=== PATIENT | female | born 1990 | race Caucasian/White ===

== ENCOUNTER 2023-07-10 10:17 | Observation (INO) | payer OTHER ==
--- NOTE | 2023-07-10 10:32 | ED ---
Abdominal Pain HPI - General Chief Complaint: Urogenital Stated Complaint: ABD pain Time Seen by Provider: 07/10/23 10:19 Source: patient, family, EMS, RN notes reviewed Mode of arrival: EMS Limitations: no limitations - History of Present Illness Initial Comments: This is a 33 year old female who presents to the emergency department for abdominal/pelvic pain. Reports sudden onset right lower quadrant abdominal/pelvic pain that was followed by dry heaving and sweating. This occurred about 20 minutes after intercourse, however she is unsure if this is related, as she has never experienced anything like this before. Her called EMS when symptoms persisted. EMS gave her Ketamine for the pain, which she found helpful, however she is still fairly uncomfortable. Denies any urinary symptoms or radiation of pain into the back. Denies any vaginal bleeding or discharge. - Related Data Home Medications Medication Instructions Recorded Confirmed No Known Home Medications 07/10/23 07/10/23 Allergies Allergy/AdvReac Type Severity Reaction Status Date / Time No Known Allergies Allergy Verified 07/10/23 13:38 Review of Systems ROS Statement: Those systems with pertinent positive or pertinent negative responses have been documented in the HPI. ROS Other: All systems not noted in ROS Statement are negative. Past Medical History Past Medical History: Cancer, Hypertension Additional Past Medical History / Comment(s): hypoglycemic, small cell lung cancer History of Any Multi-Drug Resistant Organisms: None Reported Additional Past Surgical History / Comment(s): oral surgery Past Psychological History: No Psychological Hx Reported Smoking Status: Current every day smoker Past Alcohol Use History: Rare Past Drug Use History: Marijuana General Exam Limitations: no limitations General appearance: alert, in distress Head exam: Present: atraumatic, normocephalic, normal inspection Respiratory exam: Present: normal lung sounds bilaterally. Absent: respiratory distress, wheezes, rales, rhonchi, stridor Cardiovascular Exam: Present: regular rate, normal rhythm, normal heart sounds. Absent: systolic murmur, diastolic murmur, rubs, gallop, clicks GI/Abdominal exam: Present: soft, tenderness (RLQ), normal bowel sounds. Absent: distended Neurological exam: Present: alert, oriented X3, CN II-XII intact Psychiatric exam: Present: normal affect, normal mood Skin exam: Present: warm, dry, intact, normal color. Absent: rash Course Vital Signs 0207/10/23 07/10/23 10:21 12:37 13:43 Temperature 97.1 F L Pulse Rate 71 85 64 Respiratory 16 18 18 Rate Blood Pressure 112/78 97/64 99/63 O2 Sat by Pulse 100 99 100 Oximetry Medical Decision Making - Medical Decision Making This is a 33 year old female who presents to the emergency department for abdominal pain. Was pt. sent in by a medical professional or institution? @ -No Did you speak to anyone other than the patient for history? @ -No Did you review nursing and triage notes? @ -Yes, and I agree, it is accurate with regards to the patient's symptoms. Were old charts reviewed? @ -No Differential Diagnosis? @ -Differential Abdominal Pain Women: Appendicitis, Cholecystitis, diverticulosis, ischemic bowel, pancreatitis, hepatitis, UTI, gastroenteritis, AAA, incarcerated hernia, bowel obstruction, constipation, inflammatory bowel, hepatitis, peptic ulcer disease, splenic infarction, perforated viscus, vulvitis, ovarian torsion, PID, kidney stone, placenta abruption, this is not meant to be an all-inclusive list EKG interpreted by me (3pts min.)? @ -Not obtained X-rays interpreted by me (1pt min.)? @ -Not obtained CT interpreted by me (1pt min.)? @ -CT scan of the abdomen and pelvis obtained. My interpretation identifies ascites in the pelvis. U/S interpreted by me (1pt. min.)? @ -Transvaginal US obtained. My interpretation identifies a cystic structure near the right ovary. What testing was considered but not performed? (CT, X-rays, U/S, labs)? Why? @ -None What meds were considered but not given? Why? @ -None Did you discuss the management of the patient with other professionals? @ -Yes, Dr. Meyers, who accepts the patient for admission. Did you reconcile home meds? @ -No Was smoking cessation discussed for >3mins.? @ -No Was critical care preformed (if so, how long)? @ -No Were there social determinants of health that impacted care today? How? (Homelessness, low income, unemployed, alcoholism, drug addiction, transportat ion, low edu. Level, literacy, decrease access to med. care, assisted, rehab)? @ -No Was there de-escalation of care discussed even if they declined? (Discuss DNR or withdrawal of care, Hospice)? @ -No What co-morbidities impacted this encounter? (DM, HTN, Smoking, COPD, CAD, Cancer, CVA, Hep., AIDS, mental health diagnosis, sleep apnea, morbid obesity)? @ -None Was patient admitted / discharged? @ -Admitted. Lab work obtained and found to be unremarkable. test negative. Urinalysis negative for signs of infection. We initially obtained a transvaginal US. This demonstrated a cystic structure near the right ovary thought to be an ovarian cyst. However they did not identify any acute process. There was concern given the patient's level of discomfort and sudden onset of her symptoms. Because of this we proceeded with a CT scan of the abdomen and pelvis. This demonstrated moderate to large pelvic ascites and scattered mild abdominal ascites. This also reidentified the thick-walled cystic structure in the right adnexa and also identified possible high density material/hemorrhagic debris versus collapsed bowel loops in the cul-de-sac. This most likely represents a ruptured cyst. However, there was concern based on the progression of imaging, and that there was no fluid identified on the ultrasound and the CT scan, obtained about an hour later, identified a large amount of fluid. Case discussed with Dr. Meyers, CHARGE MACHINE OPERATOR, who will admit the patient for observation. Will keep the patient NPO in the event any surgical intervention is needed. Undiagnosed new problem with uncertain prognosis? @ -None Drug Therapy requiring intensive monitoring for toxicity (Heparin, Nitro, Insulin, Cardizem)? @ -None Were any procedures done? @ -None Diagnosis/symptom? @ -Pelvic ascites, rupture of cyst of right ovary Acute, or Chronic, or Acute on Chronic? @ -Acute Uncomplicated (without systemic symptoms) or Complicated (systemic symptoms)? @ -Complicated Side effects of treatment? @ -None Exacerbation, Progression, or Severe Exacerbation] @ -Not applicable Poses a threat to life or bodily function? @ -Yes This case was discussed in detail with the attending ED physician, Dr. Tomas. Presentation, findings, and treatment plan discussed in detail as well. - Lab Data Result diagrams: 07/10/23 10:30 07/10/23 10:30 Lab Results 07/10/23 07/10/23 07/10/23 Range/Units 10:30 10:30 10:30 WBC 5.5 (3.8-10.6) k/uL RBC 4.06 (3.80-5.40) m/uL Hgb 13.4 (11.4-16.0) gm/dL Hct 38.5 (34.0-46.0) % MCV 94.8 (80.0-100.0) fL MCH 33.0 (25.0-35.0) pg MCHC 34.8 (31.0-37.0) g/dL RDW 12.2 (11.5-15.5) % Plt Count 109 L (150-450) k/uL MPV 8.8 Neutrophils % 68 % Lymphocytes % 22 % Monocytes % 5 % Eosinophils % 4 % Basophils % 0 % Neutrophils # 3.8 (1.3-7.7) k/uL Lymphocytes # 1.2 (1.0-4.8) k/uL Monocytes # 0.3 (0-1.0) k/uL Eosinophils # 0.2 (0-0.7) k/uL Basophils # 0.0 (0-0.2) k/uL Sodium 137 (137-145) mmol/L Potassium 3.8 (3.5-5.1) mmol/L Chloride 110 H (98-107) mmol/L Carbon Dioxide 19 L (22-30) mmol/L Anion Gap 8 mmol/L BUN 14 (7-17) mg/dL Creatinine 0.44 L (0.52-1.04) mg/dL Est GFR (CKD-EPI)AfAm >90 (>60 ml/min/1.73 sqM) Est GFR (CKD-EPI)NonAf >90 (>60 ml/min/1.73 sqM) Glucose 94 (74-99) mg/dL Plasma Lactic Acid Sampson (0.7-2.0) mmol/L Calcium 9.1 (8.4-10.2) mg/dL Total Bilirubin 0.5 (0.2-1.3) mg/dL AST 23 (14-36) U/L ALT 14 (4-34) U/L Alkaline Phosphatase 60 (38-126) U/L Total Protein 6.3 (6.3-8.2) g/dL Albumin 4.1 (3.5-5.0) g/dL Amylase 96 (30-110) U/L Lipase 48 (23-300) U/L HCG, Qual Not Detected Urine Color Colorless Urine Appearance Clear (Clear) Urine pH 7.0 (5.0-8.0) Ur Specific [place] 1.012 (1.001-1.035) Urine Protein Negative (Negative) Urine Glucose (UA) Negative (Negative) Urine Ketones Negative (Negative) Urine Blood Negative (Negative) Urine Nitrite Negative (Negative) Urine Bilirubin Negative (Negative) Urine Urobilinogen <2.0 (<2.0) mg/dL Ur Leukocyte Esterase Negative (Negative) 07/10/23 Range/Units 10:30 WBC (3.8-10.6) k/uL RBC (3.80-5.40) m/uL Hgb (11.4-16.0) gm/dL Hct (34.0-46.0) % MCV (80.0-100.0) fL MCH (25.0-35.0) pg MCHC (31.0-37.0) g/dL RDW (11.5-15.5) % Plt Count (150-450) k/uL MPV Neutrophils % % Lymphocytes % % Monocytes % % Eosinophils % % Basophils % % Neutrophils # (1.3-7.7) k/uL Lymphocytes # (1.0-4.8) k/uL Monocytes # (0-1.0) k/uL Eosinophils # (0-0.7) k/uL Basophils # (0-0.2) k/uL Sodium (137-145) mmol/L Potassium (3.5-5.1) mmol/L Chloride (98-107) mmol/L Carbon Dioxide (22-30) mmol/L Anion Gap mmol/L BUN (7-17) mg/dL Creatinine (0.52-1.04) mg/dL Est GFR (CKD-EPI)AfAm (>60 ml/min/1.73 sqM) Est GFR (CKD-EPI)NonAf (>60 ml/min/1.73 sqM) Glucose (74-99) mg/dL Plasma Lactic Acid Sampson 2.0 (0.7-2.0) mmol/L Calcium (8.4-10.2) mg/dL Total Bilirubin (0.2-1.3) mg/dL AST (14-36) U/L ALT (4-34) U/L Alkaline Phosphatase (38-126) U/L Total Protein (6.3-8.2) g/dL Albumin (3.5-5.0) g/dL Amylase (30-110) U/L Lipase (23-300) U/L HCG, Qual Urine Color Urine Appearance (Clear) Urine pH (5.0-8.0) Ur Specific [place] (1.001-1.035) Urine Protein (Negative) Urine Glucose (UA) (Negative) Urine Ketones (Negative) Urine Blood (Negative) Urine Nitrite (Negative) Urine Bilirubin (Negative) Urine Urobilinogen (<2.0) mg/dL Ur Leukocyte Esterase (Negative) - Radiology Data Radiology results: report reviewed, image reviewed Disposition Clinical Impression: Pelvic ascites, Rupture of cyst of right ovary Disposition: ADMITTED IP TO THIS HOSP
[2023-07-10] MEDS: SODIUM CHLORIDE 0.9% 1,000 ML IV STA (10:39)
[2023-07-10] MEDS: KETOROLAC 15 MG/ML 1 ML VIAL IVP STA (10:40)
[2023-07-10] MEDS: ONDANSETRON 4 MG/2 ML VIAL IVP STA (10:42)
[2023-07-10 10:48] LABS: Basophils % (A) 0 %; Eosinophils # (A) 0.2 k/uL (0-0.7); Eosinophils % (A) 4 %; HCT 38.5 % (34.0-46.0); HGB 13.4 gm/dL (11.4-16.0); Lymphocytes # (A) 1.2 k/uL (1.0-4.8); Lymphocytes % (A) 22 %; MCHC 34.8 g/dL (31.0-37.0); MCV 94.8 fL (80.0-100.0); Mean Platelet Volume 8.8; Monocytes # (A) 0.3 k/uL (0-1.0); Monocytes % (A) 5 %; Neutrophils # (A) 3.8 k/uL (1.3-7.7); Neutrophils % (A) 68 %; Platelet Count 109 k/uL (150-450); RBC 4.06 m/uL (3.80-5.40); RDW 12.2 % (11.5-15.5); WBC 5.5 k/uL (3.8-10.6)
[2023-07-10 11:02] LABS: HCG,Qualitative Serum Not Detected
[2023-07-10 11:04] LABS: ALT 14 U/L (4-34); AST 23 U/L (14-36); African American GFR (CKD) >90 (>60 ml/min/1.73 sqM); Albumin 4.1 g/dL (3.5-5.0); Alkaline Phosphatase 60 U/L (38-126); Amylase 96 U/L (30-110); Anion Gap 8 mmol/L; Blood Urea Nitrogen 14 mg/dL (7-17); Calcium 9.1 mg/dL (8.4-10.2); Carbon Dioxide 19 mmol/L (22-30); Chloride 110 mmol/L (98-107); Glucose 94 mg/dL (74-99); Lipase 48 U/L (23-300); Non-African American GFR(CKD) >90 (>60 ml/min/1.73 sqM); Potassium 3.8 mmol/L (3.5-5.1); Sodium 137 mmol/L (137-145); Total Bilirubin 0.5 mg/dL (0.2-1.3); Total Protein 6.3 g/dL (6.3-8.2)
--- NOTE | 2023-07-10 11:39 | US ---
EXAMINATION TYPE: US transvaginal DATE OF EXAM: 07/10/2023 COMPARISON: NONE CLINICAL INDICATION: Female, 33 years old with history of Right sided pelvic pain; right side pain TECHNIQUE: Transvaginal (TV). EXAM MEASUREMENTS: Uterus: 9.9 x 5.0 x 6.3 cm Endometrial Stripe: Not well visualized due to IUD cm Right Ovary: 6.3 x 4.4 x 5.0 cm Left Ovary: cm 1. Uterus: Anteverted wnl 2. Endometrium: Obscured by IUD 3. Right Ovary: Cystic area 4.1 x 1.9 x 3.0 cm 4. Left Ovary: 2.7 x 2.0 x 1.8 cm Spectral, color and waveform doppler imaging shows good arterial and venous flow within the ovaries ; there is no evidence for ovarian torsion. 5. Bilateral Adnexa: wnl 6. Posterior cul-de-sac: fluid visualized. IMPRESSION: 1. No evidence for acute process. 2. IUD within the endometrium. 3. Cystic structure near the right ovary possibly representing right ovarian cyst. Measuring up to 4. 1 cm. Consider short-term follow-up in 6-8 weeks to ensure resolution.
--- NOTE | 2023-07-10 12:31 | CT ---
EXAMINATION TYPE: CT abdomen pelvis w con DATE OF EXAM: 07/10/2023 COMPARISON: NONE HISTORY: 33-year-old female pelvic pain/ RLQ pain TECHNIQUE: Contiguous axial scanning of the abdomen and pelvis following administration of 100 ml Iso sukhi 300 IV contrast. Delayed images through the kidneys and coronal/sagittal reconstructions perform ed. CT DLP: 514.7 mGycm Automated exposure control for dose reduction was used. FINDINGS: LUNG BASES: No significant abnormality. LIVER/GB: No significant abnormality is appreciated. PANCREAS: No significant abnormality is seen. SPLEEN: Incidental large splenorenal shunt. ADRENALS: No significant abnormality is seen. KIDNEYS: No significant abnormality is seen. LYMPH NODES: No significant abnormality is seen. BOWEL: Scattered mild stool. No significant abnormality is seen. Normal appendix. PELVIS: Uterus anteverted. A thick-walled cystic structure in the right adnexa measures 4.6 cm. There is moderate to large pelvic ascites and scattered mild abdominal ascites.. Possible high density mat erial versus collapsed bowel loops within the cul-de-sac, axial image 59. Left ovary is obscured and not discretely visualized. IUD is in place. Bladder partially distended. OTHER: No free air. BONES: No significant abnormality is seen. IMPRESSION: 1. MODERATE TO LARGE PELVIC ASCITES AND SCATTERED MILD ABDOMINAL ASCITES. THERE IS A THICK WALLED CYS TIC STRUCTURE MEASURING 4.6 CM IN THE RIGHT ADNEXA AND POSSIBLE HIGH DENSITY MATERIAL/HEMORRHAGIC EVELYN RIS VERSUS COLLAPSED BOWEL LOOPS IN THE CUL-DE-SAC. FURTHER CLINICAL CORRELATION ADVISED TO EXCLUDE E TIOLOGIES SUCH A RUPTURED ECTOPIC VERSUS A LARGE HEMORRHAGIC CYST VERSUS RIGHT-SIDED TUBO-OVARIAN ABSCESS. 2. INCIDENTAL LARGE SPLENORENAL SHUNT. ETIOLOGY UNCLEAR.
[2023-07-10] MEDS: MORPHINE SULFATE 4 MG/ML SYRINGE IVP STA (12:35)
[2023-07-10 12:47] LABS: Appearance,Urine Clear (Clear); Bilirubin,Urine Negative (Negative); Blood,Urine Negative (Negative); Color,Urine Colorless; Glucose,Urine (UA) Negative (Negative); Ketones,Urine Negative (Negative); Leukocyte Esterase,Urine Negative (Negative); Nitrite,Urine Negative (Negative); Protein,Urine Negative (Negative); Specific Gravity,Urine 1.012 (1.001-1.035); Urobilinogen,Urine <2.0 mg/dL (<2.0)
[2023-07-10] MEDS ORDERED: NALOXONE 0.4 MG/ML 1 ML VIAL IV PRN (13:05)
[2023-07-10] MEDS ORDERED: MORPHINE SULFATE 4 MG/ML SYRINGE IV PRN (13:05)
[2023-07-10] MEDS ORDERED: ONDANSETRON 4 MG/2 ML VIAL IVP PRN (13:05)
[2023-07-10] MEDS ORDERED: KETOROLAC 15 MG/ML 1 ML VIAL IVP PRN (13:05)
[2023-07-10] MEDS: ORPHENADRINE 30 MG/ML 2 ML VIAL IVP STA (13:40)
--- NOTE | 2023-07-10 16:55 | P.HPOB ---
History of Present Illness H&P Date: 07/10/23 Chief Complaint: Lower pelvic pain after intercourse This patient is a 33-year-old 2 para 2 female who presented to the emergency department this morning with complaints of pain after having intercourse. Patient has not been seen in my office in over 10 years. Interval history is significant for placement of a Mirena IUD by a classroom technology technician in [place]. Patient states that she's had no other interval gynecologic history. Patient had intercourse this morning and afterwards began having severe right- sided pain and went to the shower hoping to alleviate this pain where she had a syncopal type episode. Patient was subsequently taken to the hospital by EMS. Patient was given a dose of ketamine per EMS and evaluated subsequently in the [facility] emergency department. On admission patient's CBC was normal and hCG was negative. Transvaginal ultrasound that showed a 4 cm right-sided cyst and a CAT scan was also ordered which subsequent showed some fluid in her pelvis and upper abdomen. Patient is uncertain when her last menstrual period is because she has a Mirena IUD. Patient's pain now has mostly resolved. Review of Systems Constitutional: Reports as per HPI Genitourinary: Reports as per HPI Menstruation: Reports amenorrhea on BC Past Medical History Past Medical History: Cancer, Hypertension Additional Past Medical History / Comment(s): Known idiopathic thrombocytopenia History of Any Multi-Drug Resistant Organisms: None Reported Additional Past Surgical History / Comment(s): oral surgery Past Psychological History: No Psychological Hx Reported Smoking Status: Current every day smoker Past Alcohol Use History: Rare Past Drug Use History: Marijuana Medications and Allergies Home Medications Medication Instructions Recorded Confirmed Type No Known Home Medications 07/10/23 07/10/23 History Allergies Allergy/AdvReac Type Severity Reaction Status Date / Time No Known Allergies Allergy Verified 07/10/23 13:38 Exam Vital Signs Temp Pulse Pulse Resp BP BP BP 07/10/23 16:08 98 F 60 15 79/48 07/10/23 14:15 98 F 59 L 15 100/62 07/10/23 13:43 64 18 99/63 07/10/23 12:37 85 18 97/64 07/10/23 10:21 97.1 F L 71 16 112/78 Pulse Ox 07/10/23 16:08 98 07/10/23 14:15 98 07/10/23 13:43 100 07/10/23 12:37 99 07/10/23 10:21 100 Intake and Output 07/10/23 07/10/23 07/10/23 06:59 14:59 22:59 Other: Weight 54.431 kg - OBG Physical Exam Abdomen: bowel sounds normal, no diffuse tenderness, no bruit present, no guarding noted, no hepatomegaly, no splenomegaly, no mass Results Result Diagrams: 07/10/23 10:30 07/10/23 10:30 Abnormal Lab Results - Last 24 Hours (Table) 07/10/23 07/10/23 Range/Units 10:30 10:30 Plt Count 109 L (150-450) k/uL Chloride 110 H (98-107) mmol/L Carbon Dioxide 19 L (22-30) mmol/L Creatinine 0.44 L (0.52-1.04) mg/dL Assessment and Plan Assessment: This is a pleasant 33-year-old 2 para 2 female with acute onset of right sided pelvic pain following intercourse and evaluation has consistent with a ruptured right ovarian cyst and subsequent hemoperitoneum. Patient also has a significant past medical history of thrombocytopenia. I have examined the patient earlier today in the emergency department and again this evening and her abdomen is soft and it does not appear to be ongoing bleeding. Plan at this time is to admit for serial CBCs and close observation. Since the patient's had no significant pain throughout the day and her exam continues to be good allow her to eat at this time. I did discontinue her toward all due to her thrombocytopenia. We will control her pain with Tylenol and if necessary IV pain medications. Patient her stands that upon discharge tomorrow she'll need to follow-up with her primary classroom technology technician for repeat imaging in approximately 6 weeks to make sure that the fluid has dissipated. (1) Pelvic pain Current Visit: Yes Status: Acute Code(s): R10.2 - PELVIC AND PERINEAL PAIN SNOMED Code(s): 98602354 (2) Thrombocytopenia Current Visit: Yes Status: Acute Code(s): D69.6 - THROMBOCYTOPENIA, UNSPECIFIED SNOMED Code(s): 116042081 (3) Rupture of cyst of right ovary Current Visit: Yes Status: Acute Code(s): N83.201 - UNSPECIFIED OVARIAN CYST, RIGHT SIDE SNOMED Code(s): 96892720974600079
[2023-07-10] MEDS: LACTATED RINGERS 1,000 ML IV SCH (17:00)
[2023-07-10 17:51] LABS: Basophils % (A) 0 %; Eosinophils # (A) 0.1 k/uL (0-0.7); Eosinophils % (A) 1 %; HCT 34.6 % (34.0-46.0); HGB 11.8 gm/dL (11.4-16.0); Lymphocytes # (A) 1.8 k/uL (1.0-4.8); Lymphocytes % (A) 25 %; MCH 32.6 pg (25.0-35.0); Mean Platelet Volume 9.3; Monocytes # (A) 0.3 k/uL (0-1.0); Monocytes % (A) 4 %; Neutrophils # (A) 4.8 k/uL (1.3-7.7); Neutrophils % (A) 68 %; Platelet Count 112 k/uL (150-450); RBC 3.61 m/uL (3.80-5.40); RDW 12.4 % (11.5-15.5)
[2023-07-10] MEDS: ACETAMINOPHEN TAB 325 MG TAB PO PRN (19:24)
[2023-07-10 20:22] VITALS: RESP 16
[2023-07-10] MEDS: HYDROmorphone 0.5 MG/0.5 ML SYRINGE IVP PRN (23:33)
--- NOTE | 2023-07-11 05:57 | P.PN ---
Progress Note - Text Progress Note Date: 07/11/23 Hospital day #2. Patient is resting without new complaints. Vital signs are stable and she is afebrile. Repeat hemoglobin is 11.8 which is an expected drop from her admission hemoglobin. Platelets are stable to with known thrombocytopenia. Serial exams show her abdomen to be soft and nondistended and nontender. Repeat CBC this morning is still pending at time of dictation. Patient's tolerating regular diet and ambulating without difficulty. Plan today is to check a CBC and if continues to be stable discharge home. Patient will need follow-up with her primary appointment specialist for repeat ultrasound in 6 weeks. I did order a CA-125 however the fluid in her abdomen appears to be blood. Patient does understand the importance of follow-up and repeat ultrasound.
[2023-07-11 06:18] LABS: Basophils % (A) 0 %; Eosinophils # (A) 0.2 k/uL (0-0.7); Eosinophils % (A) 4 %; HGB 11.2 gm/dL (11.4-16.0); Lymphocytes # (A) 1.7 k/uL (1.0-4.8); Lymphocytes % (A) 40 %; MCH 33.4 pg (25.0-35.0); MCHC 34.9 g/dL (31.0-37.0); MCV 95.6 fL (80.0-100.0); Mean Platelet Volume 8.5; Monocytes # (A) 0.2 k/uL (0-1.0); Monocytes % (A) 4 %; Neutrophils # (A) 2.1 k/uL (1.3-7.7); Neutrophils % (A) 49 %; Platelet Count 103 k/uL (150-450); RBC 3.35 m/uL (3.80-5.40); RDW 12.5 % (11.5-15.5); WBC 4.3 k/uL (3.8-10.6)
--- NOTE | 2023-07-11 06:30 | P.DS ---
Providers Date of admission: 07/10/23 12:56 Expected date of discharge: 07/11/23 Attending physician: Luis Meyers Primary care physician: Kimmy Galvez - Discharge Diagnosis(es) (1) Pelvic pain Current Visit: Yes Status: Acute (2) Thrombocytopenia Current Visit: Yes Status: Acute (3) Rupture of cyst of right ovary Current Visit: Yes Status: Acute Hospital Course: Please see dictated H&P on this patient's admission. Brief summary this 33-year-old 2 para 2 female admitted with sudden onset of pelvic pain after having intercourse. Evaluation was consistent with a ruptured ovarian cyst and hemoperitoneum. Patient was observed and had serial CBCs which stabilized 11.2. Patient's pain completely subsided on hospital day #2 was felt be stable for discharge home follow up with her primary regulation supervisor. I emphasized the fact that our office is closing and she needs a follow-up ultrasound in 6 weeks to show resolution of the fluid in her abdomen. Patient reassured me that she will follow up with her primary regulation supervisor for this ultrasound. Patient Condition at Discharge: Good Plan - Discharge Summary New Discharge Prescriptions: No Action No Known Home Medications Discharge Medication List No Known Home Medications 07/10/23 [History] Follow up Appointment(s)/Referral(s): Kimmy Galvez, PAC [Primary Care Provider] - 1-2 days Patient Instructions/Handouts: Ruptured Ovarian Cyst (DC) Activity/Diet/Wound Care/Special Instructions: No intercourse or strenuous activity for 3 weeks. Please call your primary regulation supervisor for a follow-up ultrasound in approximately 6 weeks. Return if any significant pain. Discharge Disposition: HOME SELF-CARE
[2023-07-11 09:12] VITALS: BP 82/54; PULSE 68; TEMP 98.3
== END 2023-07-11 11:03 | disposition home or self-care (01) ==
LOC: EC 10:17 → 4FBP 12:56
PROVIDERS: ADMIT Obstetrics & Gynecology; ATTEND Obstetrics & Gynecology
DX: N83.201 Unspecified ovarian cyst, right side (principal); D69.6 Thrombocytopenia, unspecified; I10 Essential (primary) hypertension; F17.200 Nicotine dependence, unspecified, uncomplicated; Z85.118 Personal history of other malignant neoplasm of bronchus and lung
CPT/HCPCS: 96361 ×3; 96375 ×2; 96374; 99285; 36415; 80053; 86304; 82150; 83605; 83690; 85025 ×2; 81003; 84703; 93975; 76830; 74177; G0378 ×2; J2270; J2360; J2405; J1885; J1170; Q9967